=== PATIENT | female | born 1990 | race Caucasian/White ===

== ENCOUNTER → 2017-01-08 14:40 | Observation (INO) ==
[2017-01-08 09:52] LABS: Basophils % 0.3 %; Eosinophils # 0.1 K/mcL (0.0-0.6); Eosinophils % 0.9 %; Hematocrit 40.4 % (35.3-44.9); Hemoglobin 13.7 g/dL (11.5-15.4); Immature Granulocytes % 0.5 % (0-4); Lymphocytes # 1.8 K/mcL (0.6-4.6); Lymphocytes % 15.3 %; Mean Corpuscular HGB Conc 33.9 g/dL (31.6-35.5); Mean Corpuscular Volume 82.6 fL (83.0-100.0); Mean Platelet Volume 12.3 fL (9.4-12.4); Monocytes # 0.9 K/mcL (0.0-1.3); Monocytes % 7.7 %; Platelet Count 177 K/mcL (140-400); Red Blood Count 4.89 M/mcL (3.82-4.97); Red Cell Distribution Width 13.2 % (11.5-14.5); Segmented Neutrophils % 75.3 %
[2017-01-08 10:01] LABS: Protein/Creatinine Ratio,Urine 0.14 mg/mg (0-0.20)
[2017-01-08 10:05] LABS: Alanine Aminotransferase 9 Units/L (0-55); Aspartate Amino Transferase 11 Units/L (5-34); BUN/Creatinine Ratio 9 (6-26); Blood Urea Nitrogen 6 mg/dL (7-20); Lactate Dehydrogenase 202 Units/L (159-327); Uric Acid 5.3 mg/dL (2.6-6.0); eGFR For African Americans > 60 (> 60); eGFR For Non-African Americans > 60 (> 60)
--- NOTE | 2017-01-08 10:19 | OB/GYN History & Physical ---
Date of Encounter: 01/08/17 Time of Encounter: 10:16 Assessment and Plan (1) tachycardia Current visit: Yes Status: Acute IV hydration patient admits to caffeine intake on way to hospital EF (2) 37 weeks gestation of Current visit: No Status: Acute admit for observation History of Present Illness Chief complaint: Contractions HPI: Ms. Saenz is a 26 year old female @ 37w0d with EDC of 01/29/2017 presents with complaints of contractions that started in the middle of the night. Patient reports they became closer together at 2 min apart. Patient was checked in office yesterday per Dr. Lvoe and was 3cm dilated. Patient reports + FM, denies LOF or VB. Blood type: A Negative, GBS: Negative. Past Med Surg Social Fam HX - Past Medical History Source: patient Medical history: no medical history, other Psychiatric history: no psych history - Past Surgical History Surgical History: cholecystectomy, other - Social History Smoking Status: Never smoker Alcohol use: none Drug use: none - Family History Mother Living Status: Still Living Hx Family Cardiac Disorders: Yes (HTN) Hx Family Respiratory Disorders: No Hx Family Cancer: No Hx Family GI Disorders: No Hx Family Endocrine Disorder: No Hx Family Neuromuscular Disorders: No Hx Family Neurologic Disorders: No Hx Family HEENT Disorders: No Hx Family Autoimmune Disorders: Yes (itp) Obstetrical History - Pregnancies : 3 Para: 2 Term: 2 : 0 Ab's: 0 Livin Medications and Allergies Tablet 1 tab PO DAILY 04/30/15 [History] Acetaminophen/Butalbital/Caffe [Fioricet] 1 each PO Q6HR PRN #30 tablet [Rx] Ibuprofen [Motrin] 600 mg PO Q6H PRN #60 tablet 08/08/15 [Rx] Allergies No Known Allergies Allergy (Verified 04/30/15 16:44) Review of System OB - Constitutional Constitutional ROS IM: headache(s) (reports headache prior to going to bed last night.), no fever(s) - Cardiovascular Cardiovascular: edema (bilateral feet), no chest pain, no leg edema, no lightheadedness, no palpitations, no rapid heart rate, no slow heart rate, no syncope - Respiratory Respiratory: no cough - Gastrointestinal Gastrointestinal: no abdominal pain, no diarrhea, no heartburn, no nausea, no vomiting - Genitourinary Genitourinary: no abnormal vaginal bleeding, no dysuria, no flank pain, no urinary frequency, no urinary incontinence, no urinary urgency, no vaginal discharge, no vaginal odor Exam - Constitutional Constitutional: well developed, well nourished, no acute distress, obese - HEENT HEENT: Normocephaly, Mucus Membranes Moist - Neck Neck exam: full ROM, supple - Lungs Respiratory exam: CTAB - Cardiovascular Cardiovascular exam: +S1, +S2, tachycardia - Abdomen Abdomen: Present: bowel sounds normal, gravid, non tender - Extremities Extremities exam: calf tenderness, full ROM, normal inspection, pedal edema (1+ bilateral ) Deep Tendon Reflex Grade: 2+ Normal - Cervix Dilation: 3 Effacement: 60 Station: -3 - Anus/Rectum Anus/Rectum: Present: normal perianal skin - Comments Comments: FHR 165 bpm moderate variability +15x15 accels no decels noted at this time. Contractions every 2-3 min Results Result Diagrams: 01/08/17 09:43 01/08/17 09:43 Abnormal lab results WBC 11.9 K/mcL (4.3-11.1) H 01/08/17 09:43 MCV 82.6 fL (83.0-100.0) L 01/08/17 09:43 Neutrophils # 9.0 K/mcL (1.6-8.9) H 01/08/17 09:43 BUN 6 mg/dL (7-20) L 01/08/17 09:43 Urine Total Protein 19 mg/dL (1-14) H 01/08/17 09:30 All other labs normal. - VTE Reasons for not Prescribing Prophylaxis: Treatment not Indicated - Low risk for VTE
--- NOTE | 2017-01-08 14:37 | Discharge Summary ---
Date of Encounter: 01/08/17 Time of Encounter: 14:36 - Discharge Diagnosis (1) tachycardia Priority: Secondary Status: Acute Comments: resolved, Reactive NST. FHR 145 bpm moderate variability +15x15 accels no decels noted. CAt. 1 tracing. (2) 37 weeks gestation of Priority: Primary Status: Acute Comments: False labor - Discharge Medications Home Medications: Tablet 1 tab PO DAILY 04/30/15 [History] Acetaminophen/Butalbital/Caffe [Fioricet] 1 each PO Q6HR PRN #30 tablet [Rx] Ibuprofen [Motrin] 600 mg PO Q6H PRN #60 tablet 08/08/15 [Rx] Allergies/Adverse Reactions: Allergies No Known Allergies Allergy (Verified 04/30/15 16:44) Data Procedures and tests throughout hospitalization: Laboratory Tests 01/08/17 01/08/17 01/08/17 09:30 09:43 09:43 WBC 11.9 H RBC 4.89 Hgb 13.7 Hct 40.4 MCV 82.6 L MCH 28.0 MCHC 33.9 RDW 13.2 Plt Count 177 MPV 12.3 Immature Gran % 0.5 Seg Neutrophils % 75.3 Lymphocytes % 15.3 Monocytes % 7.7 Eosinophils % 0.9 Basophils % 0.3 Neutrophils # 9.0 H Lymphocytes # 1.8 Monocytes # 0.9 Eosinophils # 0.1 Basophils # 0.0 BUN 6 L Creatinine 0.68 Est GFR ( Amer) > 60 Est GFR (Non-Af Amer) > 60 BUN/Creatinine Ratio 9 POC Glucose Uric Acid 5.3 AST 11 ALT 9 Lactate Dehydrogenase 202 Urine Creatinine 134 Protein/Creatinin Ratio 0.14 Urine Total Protein 19 H 01/08/17 12:15 WBC RBC Hgb Hct MCV MCH MCHC RDW Plt Count MPV Immature Gran % Seg Neutrophils % Lymphocytes % Monocytes % Eosinophils % Basophils % Neutrophils # Lymphocytes # Monocytes # Eosinophils # Basophils # BUN Creatinine Est GFR ( Amer) Est GFR (Non-Af Amer) BUN/Creatinine Ratio POC Glucose 99 H Uric Acid AST ALT Lactate Dehydrogenase Urine Creatinine Protein/Creatinin Ratio Urine Total Protein Labs on day of discharge: Labs from last 24 hours 01/08/17 01/08/17 01/08/17 12:15 09:43 09:43 WBC 11.9 H RBC 4.89 Hgb 13.7 Hct 40.4 MCV 82.6 L MCH 28.0 MCHC 33.9 RDW 13.2 Plt Count 177 MPV 12.3 Immature Gran % 0.5 Seg Neutrophils % 75.3 Lymphocytes % 15.3 Monocytes % 7.7 Eosinophils % 0.9 Basophils % 0.3 Neutrophils # 9.0 H Lymphocytes # 1.8 Monocytes # 0.9 Eosinophils # 0.1 Basophils # 0.0 BUN 6 L Creatinine 0.68 Est GFR ( Amer) > 60 Est GFR (Non-Af Amer) > 60 BUN/Creatinine Ratio 9 POC Glucose 99 H Uric Acid 5.3 AST 11 ALT 9 Lactate Dehydrogenase 202 Urine Creatinine Protein/Creatinin Ratio Urine Total Protein 01/08/17 09:30 WBC RBC Hgb Hct MCV MCH MCHC RDW Plt Count MPV Immature Gran % Seg Neutrophils % Lymphocytes % Monocytes % Eosinophils % Basophils % Neutrophils # Lymphocytes # Monocytes # Eosinophils # Basophils # BUN Creatinine Est GFR ( Amer) Est GFR (Non-Af Amer) BUN/Creatinine Ratio POC Glucose Uric Acid AST ALT Lactate Dehydrogenase Urine Creatinine 134 Protein/Creatinin Ratio 0.14 Urine Total Protein 19 H Date of admission: 01/08/17 08:30 Primary care physician: Declan Betancur CNP Discharging clinician: Samantha Nicole Anticipated date of discharge: 01/08/17 - Patient Status Disposition: Home, Self-Care Condition: Good Functional capacity at discharge: independent ambulation - Discharge Instructions Follow Up With: Declan Betancur CNP [Primary Care Provider] - Lizzie Love DO [Partnered Physician] - Additional Instructions: LABOR AND DELIVERY DISCHARGE INSTRUCTIONS Signs and Symptoms to be Reported to your Doctor Immediately: * Sudden gush, continuous or intermittent lead of fluid from vagina (note the time of gush and color of fluid) * Onset of bright red vaginal bleeding with or without pain (if you had a vaginal exam during this visit you may notice some dark red spotting. This is normal.) * Contractions that are 5 minutes apart (from the beginning of one contraction to the beginning of the next) and last 45-60 seonds; contractions that you can no longer walk, talk or laugh through. * A change in the baby's activity. This could be an increase or decrease in activity. * Severe headache which does not go away with tylenol. * Sudden swelling in the face, hands, arms and/or legs. * Upper abdominal pain - sometimes associated with heartburn or nausea and is not relieved by Maalox, Mylanta or Tums. * Kick Counts __ One hour after a meal, lay down on one side in a quiet place. Count the number of time the baby moves during an hour. 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
[~2017-01-08 14:40] MED LIST: Ringers Solution, Lactated 1,000 ML IVC SCH
== END | disposition home or self-care (01) ==
LOC: 1NENULAB
PROVIDERS: ADMIT Obstetrics & Gynecology; ATTEND Obstetrics & Gynecology

== ENCOUNTER 2017-01-21 15:01 | Inpatient (IN) ==
[2017-01-21] MEDS ORDERED: Famotidine 20 MG/2 ML VIAL IVP PRN (15:21)
[2017-01-21] MEDS ORDERED: Metoclopramide 10 MG/2 ML VIAL IVP PRN (15:21)
[2017-01-21] MEDS ORDERED: Naloxone 0.4 MG/ML INJ IVP PRN (15:21)
[2017-01-21] MEDS ORDERED: miSOPROStol 25 MCG TABLET VG SCH (15:23)
--- NOTE | 2017-01-21 15:29 | OB/GYN History & Physical ---
Date of Encounter: 01/21/17 Time of Encounter: 15:26 Assessment and Plan (1) 38 weeks gestation of Current visit: Yes Status: Acute 38 weeks 6 days elevated BP in office PIH orders initiated admit to labor and delivery for induction of labor for PIH and proteinuria IV fluids PO 50 mcg Cytotec continue FHR and toco reactive NST, category 1 with moderate variability, contractions q 2 min pain medication and epidural anesthesia upon request (2) PIH ( induced hypertension), antepartum Current visit: Yes Status: Acute will monitor BPs during and post as needed PIH orders initiated mild headache that is resolving denies blurry vision, visual changes, or abdominal pain (3) Rh negative status during Current visit: Yes Status: Acute A negative RHOgam given on 07/17/2016 RHOgam Qualifiers: Trimester: third trimester Qualified Code(s): O09.893 - Supervision of other high risk pregnancies, third trimester History of Present Illness Chief complaint: induction of labor HPI: Ms. Saenz is a 26 year old female at 38 weeks 6 days presents for induction of labor for PIH and proteinuria. Patient was seen and evaluated the office today found to have an elevated BP 152/94. Her OB is Dr. Love. Denies any complications with this to date. Last ultrasound 01/14 showed LGA and KATIE 23 cm3. Reports a mild frontal headache that has subsided throughout the day. Denies any visual changes, scotoma, RUQ/epigastric pain, or worsening edema. She endorses good movement. Denies any vaginal bleeding or leakage of fluid. Reports irregular contractions. Cervix was checked in the office by Dr. Love reported as 5 cm dilated. GBS negative, HBV nonreactive, Rubella immune, other serologies reviewed and are otherwise negative. Her blood type is A negative. Past Med Surg Social Fam HX - Past Medical History Medical history: no medical history, other Psychiatric history: no psych history - Past Surgical History Surgical History: cholecystectomy, other - Social History Smoking Status: Never smoker Smokeless Tobacco Status: No Alcohol use: none Drug use: none - Family History Mother Name: Lise Age: 47 Living Status: Still Living Hx Family Cardiac Disorders: Yes (HTN) Hx Family Respiratory Disorders: No Hx Family Cancer: No Hx Family GI Disorders: No Hx Family Endocrine Disorder: No Hx Family Neuromuscular Disorders: No Hx Family Neurologic Disorders: No Hx Family HEENT Disorders: No Hx Family Autoimmune Disorders: Yes (Sarcoidosis; ITP) Obstetrical History - Pregnancies : 3 Para: 2 Term: 2 : 0 Ab's: 0 Livin Medications and Allergies Tablet 1 tab PO DAILY 04/30/15 [History] Acetaminophen/Butalbital/Caffe [Fioricet] 1 each PO Q6HR PRN #30 tablet [Rx] Ibuprofen [Motrin] 600 mg PO Q6H PRN #60 tablet 08/08/15 [Rx] Allergies No Known Allergies Allergy (Verified 04/30/15 16:44) Review of System OB All systems PM: reviewed and no additional remarkable complaints except as stated Exam - Constitutional Constitutional: well developed, well nourished, no acute distress, obese - HEENT HEENT: EOMI, Normocephaly, Mucus Membranes Moist - Neck Neck exam: full ROM, normal inspection - Lungs Respiratory exam: CTAB - Cardiovascular Cardiovascular exam: RRR, +S1, +S2 - Abdomen Abdomen: Present: bowel sounds normal, gravid, non tender - Extremities Extremities exam: full ROM, normal capillary refill, pedal edema (mild, +1 symmetrical bilaterally) Deep Tendon Reflex Grade: 2+ Normal - Cervix Dilation: 5 (per OB in office) - Uterus Uterus exam: Present: normal size - Comments Comments: reactive FHR category 1, baseline 145 with moderate variability and 15x15 accels contractions q2 min Results All other labs normal. - VTE Reasons for not Prescribing Prophylaxis: Treatment not Indicated - Low risk for VTE
[2017-01-21] MEDS ORDERED: Ringers Solution, Lactated 1,000 ML IVC SCH (15:30)
[2017-01-21 15:58] LABS: Basophils % 0.2 %; Eosinophils # 0.1 K/mcL (0.0-0.6); Eosinophils % 0.7 %; Hematocrit 38.7 % (35.3-44.9); Hemoglobin 13.1 g/dL (11.5-15.4); Immature Granulocytes % 0.5 % (0-4); Lymphocytes # 1.7 K/mcL (0.6-4.6); Lymphocytes % 20.3 %; Mean Corpuscular HGB Conc 33.9 g/dL (31.6-35.5); Mean Corpuscular Hemoglobin 28.4 pg (28.0-33.3); Mean Corpuscular Volume 83.9 fL (83.0-100.0); Mean Platelet Volume 12.8 fL (9.4-12.4); Monocytes # 0.7 K/mcL (0.0-1.3); Monocytes % 7.7 %; Platelet Count 159 K/mcL (140-400); Red Blood Count 4.61 M/mcL (3.82-4.97); Red Cell Distribution Width 13.3 % (11.5-14.5); Segmented Neutrophils % 70.6 %
[2017-01-21 16:14] LABS: Alanine Aminotransferase 11 Units/L (0-55); BUN/Creatinine Ratio 15 (6-26); Blood Urea Nitrogen 11 mg/dL (7-20); eGFR For African Americans > 60 (> 60); eGFR For Non-African Americans > 60 (> 60)
[2017-01-21 16:15] LABS: Aspartate Amino Transferase 19 Units/L (5-34); Lactate Dehydrogenase 294 Units/L (159-327)
[2017-01-21] MEDS ORDERED: Oxytocin 20 units/ LR 1000 mL 20 UNIT/1,000 ML BAG IVC SCH (18:45)
[2017-01-21] MEDS ORDERED: Epidural Premix (fent/bupiv) 110 ML EP ONE (20:39)
[2017-01-21] MEDS ORDERED: Epidural Premix (fent/bupiv) 110 ML EP SCH (20:45)
[2017-01-21 21:39] LABS: Protein/Creatinine Ratio,Urine 0.26 mg/mg (0-0.20)
--- NOTE | 2017-01-21 21:48 | Anesthesia Evaluation PreOp ---
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 Other Medical History: Denies Any Significant HX Anesthesia History: Past Anesthesia (STATES LAST EPIDURAL PLACEMENT REQUIRED 6 TRIES, AND RESULTED IN PDPH WHICH WAS TREATED WITH EBP.) : Yes Test: Positive Alcohol Use: none Drug use: none Medications and Allergies Tablet 1 tab PO DAILY 04/30/15 [History] Acetaminophen/Butalbital/Caffe [Fioricet] 1 each PO Q6HR PRN #30 tablet [Rx] Ibuprofen [Motrin] 600 mg PO Q6H PRN #60 tablet 08/08/15 [Rx] Allergies No Known Allergies Allergy (Verified 04/30/15 16:44) - Meds/Allergy Pre-op Review Medications Reviewed: Yes Allergies Reviewed: Yes Beta Blockers on Current Med List: No Anesthesia Results - Labs 01/21/17 15:50 01/21/17 15:50 Anesthesia Exam Height: 65 Weight: 131KG NPO (# of Hours): MN Pain Scale: 7 - HEENT Pupil (Motor): Pupils equal Mallampati: II Teeth: Normal Oral Opening: Greater than 3 - REAL ESTATE SALES SUPERVISOR LOC: Oriented REAL ESTATE SALES SUPERVISOR Motor: Normal RUE, Normal LUE, Normal RLE, Normal LLE, Normal Face [employer] ESTATE SALES SUPERVISOR Sensory: Normal: RUE, LUE, RLE, LLE, Face - Cardiac Rhythm: Regular Murmur: None JVD: No Carotid Bruit: No - Pulmonary Breath Sounds: bilateral Clear Respiratory Effort: Symmetrical Anesthesia Assess/Plan ASA Score: 2 Modified Dick Scale for Level of Consciousness: Cooperative, oriented, and tranquil Anesthetic Plan: Regional Autologous Blood: No Monitoring Plan: Standard Monitors
--- NOTE | 2017-01-21 21:52 | Anesthesia Procedures ---
Date of Encounter: 01/21/17 Time of Encounter: 20:40 Procedures: Anesthesia - Epidural/Spinal Patient ID/Chart reviewed: Yes Patient examined: Yes OB Eval: Gestational age: 38.6 OB Eval: : 3 OB Eval: Hx Para: 2 OB Eval: Dilated at (cm): 7 OB Eval: Contractions: Non-stressed pattern Consent Obtained: Yes Supplemental Oxygen: None/Room Air Site Prep: Aseptic Technique, Sterile prep and drape, Povidone-Iodine 1% Patient position: upright Local Anesthetic: Lidocaine 1% Amount of Local Anesthetic used: 3 Touhy Needle Gauge: 18 Touhy Needle Depth (cm): 9 Catheter Depth at Skin (cm): 15 Test Dose (1.5% Lido + Epi): Volume given (mls): 3 Test Dose Result: Negative Infusion Rate (mls/hr): [address]: Tegaderm, Tape Interspace Used: L3-L4 Loss of Resistance (TAMIKA): Yes Blood: No CSF: No Paresthesia: No Procedure: history of difficult epidural placement per patient. risk of PDPH discussed, pt agrees to proceed. Attempted epidural placement X 2. L45 and L3-4 with success at L3-4. no signs of PDP. Pain level with contractions reduced from level 7 to minimal per patient. Vitals + FHT's: stable during placement see nursing notes.
--- NOTE | 2017-01-22 00:07 | OB Labor Progress Note ---
Date of Encounter: 01/22/17 Time of Encounter: 00:05 Labor Progress Note - Subjective Subjective: Patient resting in bed comfortable with epidural in place. Discussed POC with patient. Patient denies any questions or concerns. - Cervix Cervix: 8/90/-1 - Heart Tones Heart Tones: 145 bpm moderate variability +15x15 accels occasional early decel noted. - Ryegate Ryegate: 2-3 minutes - Interventions Interventions: SVE, AROM moderate amount of clear fluid. Patient tolerated well. - Plan Plan: Continue labor management.
[2017-01-22] MEDS ORDERED: Lidocaine 1% 20 ML MDV ONE (04:58)
[2017-01-22] MEDS ORDERED: Rho Immune Globulin 1,500 UNIT SYRINGE IM PRN (05:53)
[2017-01-22] MEDS ORDERED: Benzocaine/Menthol 56 GM AEROSOL SPRAY TP PRN (05:53)
[2017-01-22] MEDS ORDERED: Lanolin 7 G OINT...G. TP PRN (05:53)
[2017-01-22] MEDS ORDERED: Measles/Mumps/Rubella Vacc 0.5 ML VIAL SQ PRN (05:53)
[2017-01-22] MEDS ORDERED: Acetaminophen 325 MG TABLET PO PRN (05:53)
[2017-01-22] MEDS ORDERED: Oxytocin 20 units/ LR 1000 mL 20 UNIT/1,000 ML BAG IVC SCH (06:00)
--- NOTE | 2017-01-22 06:12 | OB/GYN Procedure Note ---
Delivery - Delivery Date: 01/22/17 Provider: Tam Wills Intrapartum events: none Delivery induction: AROM, oxytocin Delivery augmentation: rupture of membranes Delivery monitor: external FHT Anesthesia: epidural Estimated Blood Loss: 450 - Repair Episiotomy: mediolateral Laceration Description: Perineal - 2nd Degree - Complications Delivery complications: other Delivery comments: shoulder dystocia - Disposition Mom disposition: stable in LDR [place] disposition: stable in LDR - Comments Comments: This is a 26 y/o @ 38+6 weeks who is s/p IOL for GHTN who became fully dilated and delivered a viable male infant weighing 4835g. Delivery was complicated by shoulder dystocia. I was called into the room after the correction worker called out for help. Nursing staff and Peds also came into the room. The fetus was GERDA. The following maneuvers listed in order were used in an attempt to resolve the shoulder dystocia. Elvis with suprapubic pressure was initiated first, after unsuccessful attempts at delivery of shoulder, I cut a right mediolateral episiotomy and delivered the posterior arm. The dystocia lasted 2 mins. There was a nuchal cord x1, 3 vessel cord, APGARs 2/7, mediolateral episiotomy and 2nd degree laceration repaired in usual fashion, EBL 450. Time of delivery: 0454hrs, placenta delivered 0510hrs. Mother and doing well.
[2017-01-22] MEDS: *HR* HYDROcodone/Acet 5/325 mg TABLET PO PRN ×3 (06:16→21:14)
[2017-01-22] MEDS ORDERED: Ondansetron 4 MG/2 ML VIAL IVP ONE (06:32)
[2017-01-22] MEDS ORDERED: Ondansetron 4 MG/2 ML VIAL ONE (06:37)
[2017-01-22] MEDS: Ibuprofen 600 MG TABLET PO PRN ×2 (10:09→19:04)
[2017-01-22] MEDS: Prenatal Vit/FA 1 EACH TABLET PO SCH (10:09)
[2017-01-23 06:37] LABS: Basophils % 0.2 %; Eosinophils # 0.1 K/mcL (0.0-0.6); Hematocrit 24.9 % (35.3-44.9); Immature Granulocytes % 0.5 % (0-4); Lymphocytes # 1.7 K/mcL (0.6-4.6); Lymphocytes % 13.9 %; Mean Corpuscular HGB Conc 33.3 g/dL (31.6-35.5); Mean Corpuscular Hemoglobin 28.1 pg (28.0-33.3); Mean Corpuscular Volume 84.4 fL (83.0-100.0); Mean Platelet Volume 12.5 fL (9.4-12.4); Monocytes # 0.7 K/mcL (0.0-1.3); Monocytes % 5.8 %; Neutrophils # 9.4 K/mcL (1.6-8.9); Platelet Count 124 K/mcL (140-400); Red Blood Count 2.95 M/mcL (3.82-4.97); Red Cell Distribution Width 13.3 % (11.5-14.5); Segmented Neutrophils % 78.6 %
[2017-01-23 06:39] LABS: Hemoglobin 8.3 g/dL (11.5-15.4)
[2017-01-23] MEDS: Prenatal Vit/FA 1 EACH TABLET PO SCH (08:07)
[2017-01-23] MEDS: Ibuprofen 600 MG TABLET PO PRN (08:11)
--- NOTE | 2017-01-23 08:30 | Discharge Summary ---
Date of Encounter: 01/23/17 Time of Encounter: 08:26 - Discharge Diagnosis (1) Vaginal delivery Priority: Primary Status: Acute Comments: Pt states feels well. Pain well managed on po pain medication. Tolerates PO diet. Voiding well. Desires discharge (2) Episiotomy pain Priority: Secondary Status: Acute (3) PIH ( induced hypertension), antepartum Priority: Primary Status: Acute - Discharge Medications Prescriptions: HYDROcodone/Acet 5/325 mg [[place] 5-325 mg] 1 tab PO Q6HR PRN #7 tablet PRN Reason: Moderate Pain (4-6) Ibuprofen [Motrin] 600 mg PO Q6HR PRN #60 tablet PRN Reason: Cramping Docusate [Colace] 100 mg PO BID #60 capsule Ferrous Sulfate 325 mg PO DAILY #60 tablet Home Medications: Tablet 1 tab PO DAILY 04/30/15 [History] Ibuprofen [Motrin] 600 mg PO Q6H PRN #60 tablet 08/08/15 [Rx] Acetaminophen [Tylenol] 650 mg PO Q6HR PRN #0 tablet 01/23/17 [Rx] Benzocaine/Menthol [place] [Dermoplast [place]] 1 appl TP QID PRN #0 aerosol [Rx] Docusate [Colace] 100 mg PO BID #60 capsule 01/23/17 [Rx] Ferrous Sulfate 325 mg PO DAILY #60 tablet 01/23/17 [Rx] HYDROcodone/Acet 5/325 mg [[place] 5-325 mg] 1 tab PO Q6HR PRN #7 tablet 01/23/17 [Rx] Ibuprofen [Motrin] 600 mg PO Q6HR PRN #60 tablet 01/23/17 [Rx] Lanolin [Lansinoh] 1 appl TP TID PRN #0 oint...g. 01/23/17 [Rx] Allergies/Adverse Reactions: Allergies No Known Allergies Allergy (Verified 04/30/15 16:44) Data Procedures and tests throughout hospitalization: Laboratory Tests 01/21/17 01/21/17 01/21/17 15:50 15:50 20:29 WBC 8.5 RBC 4.61 Hgb 13.1 Hct 38.7 MCV 83.9 MCH 28.4 MCHC 33.9 RDW 13.3 Plt Count 159 MPV 12.8 H Immature Gran % 0.5 Seg Neutrophils % 70.6 Lymphocytes % 20.3 Monocytes % 7.7 Eosinophils % 0.7 Basophils % 0.2 Neutrophils # 6.0 Lymphocytes # 1.7 Monocytes # 0.7 Eosinophils # 0.1 Basophils # 0.0 BUN 11 Creatinine 0.71 Est GFR ( Amer) > 60 Est GFR (Non-Af Amer) > 60 BUN/Creatinine Ratio 15 Uric Acid 6.0 AST 19 ALT 11 Lactate Dehydrogenase 294 Urine Creatinine 160 Protein/Creatinin Ratio 0.26 H Urine Total Protein 41 H Screen Baby's Blood Type Mother's Blood Type Rhogam Indicated Rhogam Req for Mother 01/22/17 01/23/17 05:51 05:26 WBC 11.9 H RBC 2.95 L Hgb 8.3 L D Hct 24.9 L MCV 84.4 MCH 28.1 MCHC 33.3 RDW 13.3 Plt Count 124 L MPV 12.5 H Immature Gran % 0.5 Seg Neutrophils % 78.6 Lymphocytes % 13.9 Monocytes % 5.8 Eosinophils % 1.0 Basophils % 0.2 Neutrophils # 9.4 H Lymphocytes # 1.7 Monocytes # 0.7 Eosinophils # 0.1 Basophils # 0.0 BUN Creatinine Est GFR ( Amer) Est GFR (Non-Af Amer) BUN/Creatinine Ratio Uric Acid AST ALT Lactate Dehydrogenase Urine Creatinine Protein/Creatinin Ratio Urine Total Protein Screen NEGATIVE Baby's Blood Type A RH POSITIVE Mother's Blood Type A RH NEGATIVE Rhogam Indicated YES Rhogam Req for Mother 1 Labs on day of discharge: Labs from last 24 hours 01/23/17 01/22/17 05:26 05:51 WBC 11.9 H RBC 2.95 L Hgb 8.3 L D Hct 24.9 L MCV 84.4 MCH 28.1 MCHC 33.3 RDW 13.3 Plt Count 124 L MPV 12.5 H Immature Gran % 0.5 Seg Neutrophils % 78.6 Lymphocytes % 13.9 Monocytes % 5.8 Eosinophils % 1.0 Basophils % 0.2 Neutrophils # 9.4 H Lymphocytes # 1.7 Monocytes # 0.7 Eosinophils # 0.1 Basophils # 0.0 Screen NEGATIVE Rhogam Indicated YES Rhogam Req for Mother 1 Date of admission: 01/21/17 15:01 Primary care physician: Declan Betancur CNP Consults: 01/22/17 05:53 Consult to Cardiovascular Specialist [CONS] Routine Comment: Vaginal delivery, consult needed Discharging clinician: Alla Holly Anticipated date of discharge: 01/23/17 - Patient Status Disposition: Home, Self-Care Condition: Good Functional capacity at discharge: independent ambulation Overall status at discharge: patient is back to baseline - Discharge Instructions Instructions: Chronic Hypertension (DC) Follow Up With: Declan Betancur CNP [Primary Care Provider] - Samantha Nicole CNM [Non-Partnered Physician] - - Diet and Activity Activity: resume usual activities as tolerated Diet: advance to your usual diet, regular diet Hospital Course Reason for admission: IUP at term Delivery: Episiotomy: mediolateral Other procedures: none complications: none Discharge diagnosis: IUP at term delivered [place] baby: male Hospital course: Delivery - Delivery Date: 01/22/17 Provider: Tam Wills Intrapartum events: none Delivery induction: AROM, oxytocin Delivery augmentation: rupture of membranes Delivery monitor: external FHT Anesthesia: epidural Estimated Blood Loss: 450 - Repair Episiotomy: mediolateral Laceration Description: Perineal - 2nd Degree - Complications Delivery complications: other Delivery comments: shoulder dystocia - Disposition Mom disposition: stable in - Comments Comments: This is a 26 y/o @ 38+6 weeks who is s/p IOL for GHTN who became fully dilated and delivered a viable male infant weighing 4835g. Delivery was complicated by shoulder dystocia. I was called into the room after the supervisor coil springs called out for help. Nursing staff and Peds also came into the room. The fetus was GERDA. The following maneuvers listed in order were used in an attempt to resolve the shoulder dystocia. Elvis with suprapubic pressure was initiated first, after unsuccessful attempts at delivery of shoulder, I cut a right mediolateral episiotomy and delivered the posterior arm. The dystocia lasted 2 mins. There was a nuchal cord x1, 3 vessel cord, APGARs 2/7, mediolateral episiotomy and 2nd degree laceration repaired in usual fashion, EBL 450. Time of delivery: 0454hrs, placenta delivered 0510hrs. Mother and infant doing well. Time Attestation: Total time spent providing and/or coordinating discharge services: Time Spent: Less than 30 minutes Exam - Constitutional Vitals: Temp Pulse Resp BP Pulse Ox 98.0 F 84 12 110/75 97 01/23/17 05:15 01/23/17 05:15 01/23/17 05:15 01/23/17 05:15 01/23/17 05:15 General appearance IM: A&O X 3 - Respiratory Respiratory exam: Present: CTAB - Cardiovascular Cardiovascular exam IM: Present: RRR, +S1, +S2 - GI/Abdominal GI/Abdominal exam IM: normal bowel sounds, soft Incision: normal - Uterine Tone: Firm Uterus Position: 1 Finger Above Umbilicus - Extremities Exam Extremities exam IM: Present: normal capillary refill, normal inspection, pedal edema - Neurological Exam Neurological exam: normal gait, oriented X3 - Psychiatric Additional comments: reports good mood
[2017-01-23 12:34] VITALS: BP 103/70
[2017-01-23] MEDS: *HR* HYDROcodone/Acet 5/325 mg TABLET PO PRN (12:49)
== END 2017-01-23 13:30 | disposition home or self-care (01) | DRG 775 ==
LOC: 1NENULAB 15:01 → 1NENUOBS 01-22 08:14
PROVIDERS: ADMIT Student in an Organized Health Care Education/Training Program; ATTEND Student in an Organized Health Care Education/Training Program